=== PATIENT | female | born 1975 | race Caucasian/White ===

== ENCOUNTER 2023-02-18 23:14 | Emergency (ER) | payer OTHER, SELFPAY ==
[2023-02-18 23:21] VITALS: BP 126/87; PULSE 71; RESP 20; TEMP 36.4; O2SAT 100; BMI 22.7
[2023-02-18 23:29] VITALS: PULSE 70; O2SAT 93
[2023-02-18 23:30] VITALS: PULSE 79; O2SAT 95
[2023-02-18 23:45] VITALS: PULSE 68; O2SAT 92
[2023-02-19] VITALS (9 sets, daily range): BP systolic 101–193; BP diastolic 53–94; PULSE 70–86; RESP 18; O2SAT 90–99
--- NOTE | 2023-02-19 00:14 | ED_ITS ---
HPI - Chest Pain General Time Seen by Provider: 00:14 Date Seen: 02/19/23 Chief Complaint: Chest Pain Stated Complaint: chest pain Time Seen by Provider: 02/19/23 00:13 Source: patient, family, RN notes reviewed and old records reviewed Mode of arrival: ambulatory Limitations: no limitations History of Present Illness HPI narrative: 47-year-old female who comes in today with chest pain. About 1 hour prior to coming the emergency department, patient noted substernal and right-sided pressure and ?bubbling accompanying with some belching. No nausea vomiting, no shortness of breath. Pain is worse lying down, better sitting up in does radiate into the jaw. Has not taken anything for this. Denies prior surgeries. Related Data Home Medications Medication Instructions Recorded Confirmed albuterol sulfate 90 mcg/actuation 2 puff inhalation Q6H PRN 10/15/22 02/18/23 aerosol inhaler multivitamin 1 tab PO QAM 10/15/22 02/18/23 Previous Rx's Medication Instructions Recorded sertraline 50 mg tablet 50 mg PO QDAY #90 tabs 10/15/22 Allergies Allergy/AdvReac Type Severity Reaction Status Date / Time No Known Drug Allergies Allergy Verified 10/15/22 09:17 Review of Systems Status of ROS Reports: 10 or more systems reviewed and unremarkable except as noted in History and below [facility] Medical History (Updated 02/19/23 @ 02:13 by Nicolas Bartholomew MD) IUD (intrauterine device) in place ?Z97.5 - Presence of (intrauterine) contraceptive device (ICD-10) History of abnormal cervical Pap smear ?Z87.42 - Personal history of other diseases of the female genital tract (ICD-10) Vasovagal syncope ?R55 - Syncope and collapse (ICD-10) Anxiety ?F41.9 - Anxiety disorder, unspecified (ICD-10) Asthma ?J45.909 - Unspecified asthma, uncomplicated (ICD-10) Surgical History (Updated 10/11/22 @ 13:24 by Kelsey Gonzalez) History of excision of lesion (06/19/17) ?Z98.890 - Other specified postprocedural states (ICD-10) ?Z87.2 - Personal history of diseases of the skin and subcutaneous tissue (ICD-10) [place] teeth extracted ?K08.409 - Partial loss of teeth, unspecified cause, unspecified class (ICD- 10) History of colposcopy (1998) ?Z98.890 - Other specified postprocedural states (ICD-10) History of vaginal delivery Family History (Updated 10/11/22 @ 13:22 by Kelsey Gonzalez) Father Coronary artery disease High blood pressure High cholesterol Alcohol dependence Depression Paternal Grandmother Breast cancer Diabetes Osteoporosis Maternal Grandmother Diabetes Lung cancer, Onset Age: 54 Brother High blood pressure High cholesterol Maternal Grandfather Diabetes Coronary artery disease High blood pressure High cholesterol Mother Vasovagal syncope Hypothyroidism Colon polyps Osteoporosis Paternal Grandfather Coronary artery disease High blood pressure High cholesterol Alcohol dependence Depression Diabetes Aunt Breast cancer Social History Smoking Status: Never smoker Do you use any of these nicotine containing products: None Second hand tobacco smoke exposure: No How often do you have a drink containing alcohol: monthly or less AUDIT-C Alcohol total score: 1 Non-prescribed substance use: denies use Little interest or pleasure in doing things: not at all Feeling down, depressed, or hopeless: not at all Exam Narrative Exam Narrative: General: Well-developed and well-nourished, no acute distress Head: Atraumatic and normocephalic Eyes: Pupils are equal reactive, extraocular motions intact, conjunctiva clear ENT: External nose and ears are normal, posterior pharynx without erythema or exudate Neck: No midline cervical tenderness, full spontaneous range of motion the neck, trachea midline, no adenopathy Heart: Regular rate and rhythm no murmurs or thrills Lungs: Clear to auscultation bilaterally without wheezes or crackles Abdomen: Soft, nontender, nondistended with active bowel sounds Musculoskeletal: No tenderness, deformity, or edema Neurologic: Awake, alert, and oriented x3, no gross focal neurologic deficits, cranial nerves intact as tested Psych: Mood and affect are appropriate Skin: No rashes Const Vital Signs, click to edit/add: Vital Signs - 24 hr 02/18/23 23:21 02/18/23 23:29 02/18/23 23:30 Temperature 97.6 F Pulse Rate 70 79 Pulse Rate [Pulse Oximeter] 71 Respiratory Rate 20 Blood Pressure Blood Pressure [Right Upper Arm] 126/87 Pulse Oximetry 100 93 95 Oxygen Delivery Method Room Air Room Air 02/18/23 23:45 02/19/23 00:00 02/19/23 00:04 Temperature Pulse Rate 68 86 77 Pulse Rate [Pulse Oximeter] Respiratory Rate Blood Pressure 193/94 H Blood Pressure [Right Upper Arm] Pulse Oximetry 92 90 96 Oxygen Delivery Method 02/19/23 00:06 02/19/23 00:15 02/19/23 00:30 Temperature Pulse Rate 78 75 Pulse Rate [Pulse Oximeter] Respiratory Rate Blood Pressure 182/74 H Blood Pressure [Right Upper Arm] Pulse Oximetry 94 94 95 Oxygen Delivery Method 02/19/23 01:53 Temperature Pulse Rate Pulse Rate [Pulse Oximeter] 70 Respiratory Rate 18 Blood Pressure Blood Pressure [Right Upper Arm] 117/71 Pulse Oximetry 99 Oxygen Delivery Method Room Air Course Course Hospital Course: Patient seen and examined, prior records are reviewed. Differential diagnosis includes but not limited to musculoskeletal pain, rib fracture, hemothorax, pneumothorax, pneumonia, pulmonary embolism, acute coronary syndrome, pericarditis, myocarditis, esophagitis, gastroesophageal reflux. Patient presents today with chest pain. Low risk by Wells criteria and PERC negative, no indication for D-dimer or CT PE study. Patient with substernal right-sided chest pain and ?bubbling. ? No focal findings on exam, EKG is reassuring, initial troponin is 0. Additional labs are ordered along with Maalox, Pepcid, and plan for repeat troponin at 1:30 a.m.. Reevaluation(s) Time of Reevaluation #1: 01:16 Reevaluation #1: Labs independently interpreted by me with reassuring CBC, normal basic panel, normal hepatic panel, normal lipase. Chest x-ray independently interpreted by me negative for acute findings. Repeat troponin will be performed and if this is negative patient can be discharged. Time of Reevaluation #2: 02:04 Reevaluation #2: Repeat troponin is negative. Patient recheck, resting comfortably and feels better. Discussed diagnosis and plan, patient is stable for discharge. Vital Signs Vital signs: Initial Vital Signs Temperature 97.6 F 02/18/23 23:21 Temperature Source Temporal Artery Scan 02/18/23 23:21 Pulse Rate 71 02/18/23 23:21 Respiratory Rate 20 02/18/23 23:21 Blood Pressure 126/87 02/18/23 23:21 Blood Pressure Mean 100 02/18/23 23:21 Blood Pressure Position Supine 02/18/23 23:21 Pulse Oximetry 100 02/18/23 23:21 Oxygen Delivery Method Room Air 02/18/23 23:21 Vital Signs Temperature 97.6 F 02/18/23 23:21 Pulse Rate 71 02/18/23 23:21 Respiratory Rate 20 02/18/23 23:21 Blood Pressure 126/87 02/18/23 23:21 Pulse Oximetry 100 02/18/23 23:21 Oxygen Delivery Method Room Air 02/18/23 23:21 Temperature 97.6 F 02/18/23 23:21 Pulse Rate 70 02/19/23 01:53 Respiratory Rate 18 02/19/23 01:53 Blood Pressure 117/71 02/19/23 01:53 Pulse Oximetry 99 02/19/23 01:53 Oxygen Delivery Method Room Air 02/19/23 01:53 MDM - Chest Pain Lab Data Labs: Lab Results 02/19/23 02/19/23 Range/Units 00:00 01:35 WBC 8.93 (4.50-11.00) K/uL RBC 4.30 (4.00-5.20) m/uL Hgb 12.8 (12.0-16.0) gm/dL Hct 38.2 (33.0-51.0) % MCV 89 (80-100) fL MCH 30 (26-34) pg MCHC 34 (32-36) gm/dL RDW Coeff of Marti 13.0 (11.5-15.5) % Plt Count 284 (140-440) K/uL Neut % (Auto) 53.9 (42.0-72.0) % Lymph % (Auto) 36.4 (20-44) % [place] % (Auto) 7.6 (0.0-11.0) % Eos % (Auto) 1.5 (0.0-7.0) % Baso % (Auto) 0.3 (0.0-3.0) % Neut # (Auto) 4.81 (1.7-7.0) K/uL Lymph # (Auto) 3.25 H (0.90-2.90) K/uL [place] # (Auto) 0.70 (0.00-0.90) K/UL Eos # (Auto) 0.13 (0.00-0.50) K/uL Baso # (Auto) 0.03 (0.00-0.30) K/uL Abs Immat Gran (auto) 0.03 (0.00-0.30) K/uL Imm/Tot Granulo (auto) 0.3 % Sodium 137 (135-149) mmol/L Potassium 3.9 (3.6-5.1) mmol/L Chloride 104 (96-114) mmol/L Carbon Dioxide 26 (20-32) mmol/L BUN 12 (5-24) mg/dL Creatinine 0.8 (0.5-1.5) mg/dL Estimated Creat Clear 84.54 Estimated GFR 91 ml/min Glucose 106 (60-115) mg/dL Calcium 9.5 (8.4-10.6) mg/dL Magnesium 2.0 (1.5-2.6) mg/dL Total Bilirubin 0.9 (0.1-1.5) mg/dL Direct Bilirubin 0.1 (0.0-0.5) mg/dL AST 28 (12-35) U/L ALT 21 (4-35) U/L Alkaline Phosphatase 58 (40-150) U/L Total Protein 7.1 (6.0-8.3) g/dL Albumin 4.3 (3.3-5.0) g/dL Lipase 114 (23-300) U/L POC Troponin I 0.00 L 0.00 L (0.01-0.04) ng/ml ECG Data Attestation: I personally reviewed and interpreted this ECG as follows: ECG interpretation date: 02/19/23 ECG interpretation time: 23:21 Prior ECG tracings: not available for review Interpretation: Independently interpreted by me demonstrates sinus rhythm at 75, no acute ST elevations or depressions, normal intervals, normal axis, QTC 433, IL 168. No prior for comparison. Discharge Plan Discharge Clinical Impression: Chest pain, Dyspepsia Patient Disposition: Home, Self-Care Condition: Stable Instructions: GERD (Gastroesophageal Reflux Disease) (DC), Noncardiac Chest Pain (ED) Additional Instructions: [place] diet for 24 hours. Take omeprazole, pantoprazole, or Pepcid daily for 1 week Activity Level: Activity as Tolerated Discharge Diet: Regular Prescriptions: No Action multivitamin Tablet 1 tab PO QAM albuterol sulfate 90 mcg/actuation HFA aerosol inhaler 2 puff inhalation Q6H PRN sertraline 50 mg tablet 50 mg PO QDAY Qty: 90 4RF Follow Up/Referrals: Provider,Not a Local [Referring] - Stand Alone Forms: [facility] Info Instructions
--- NOTE | 2023-02-19 00:24 | CRLHL7_ITS ---
For Patients: As a result of the Century Cures Act, medical imaging exams and procedure reports are released immediately into your electronic medical record. You may view this report before your referring provider. If you have questions, please contact your health care provider. INDICATION: Chest pain. TECHNIQUE: Chest 2 views. COMPARISON: None. FINDINGS: Cardiovascular and mediastinum: Heart size and vasculature are normal in caliber and appearance. Lungs and pleural spaces: Lungs are clear. No sign of infiltrate or mass. No sign of pleural effusion. No pneumothorax. Bones and soft tissues: No significant findings. IMPRESSION: No acute or significant findings. Dictated by Lopez Rowley MD @ 02/19/2023 1:48:59 AM (Electronically Signed)
[2023-02-19] MEDS: 0.9 % SODIUM CHLORIDE 1000 ml 1,000 ML IV (00:35)
[2023-02-19] MEDS: FAMOTIDINE 10 MG/ML inj 20 MG IVP (00:35)
[2023-02-19 00:44] LABS: Basophils Absolute Auto 0.03 K/uL (0.00-0.30); Basophils Percent Auto 0.3 % (0.0-3.0); Eosinophils Absolute Auto 0.13 K/uL (0.00-0.50); Eosinophils Percent Auto 1.5 % (0.0-7.0); Hematocrit 38.2 % (33.0-51.0); Hemoglobin* 12.8 gm/dL (12.0-16.0); Immature Granulocytes Abs Auto 0.03 K/uL (0.00-0.30); Immature Granulocytes Pct Auto 0.3 %; Lymphocytes Absolute Auto 3.25 K/uL (0.90-2.90); Lymphocytes Percent Auto 36.4 % (20-44); Mean Corpuscular HGB Conc 34 gm/dL (32-36); Mean Corpuscular Hemoglobin 30 pg (26-34); Mean Corpuscular Volume 89 fL (80-100); Monocytes Percent Auto 7.6 % (0.0-11.0); Neutrophils Absolute Auto 4.81 K/uL (1.7-7.0); Neutrophils Percent Auto 53.9 % (42.0-72.0); Platelet Count* 284 K/uL (140-440); White Blood Count* 8.93 K/uL (4.50-11.00)
[2023-02-19 00:48] LABS: Slide Review Reflex No
--- NOTE | 2023-02-19 01:07 | ED.NURSE ---
First POC Troponin (results: 0.00) obtained on 02/18/23 at 2335. Unable to change date/time collection in laboratory results.
[2023-02-19 01:10] LABS: Albumin* 4.3 g/dL (3.3-5.0)
[2023-02-19 01:11] LABS: Chloride* 104 mmol/L (96-114); Potassium* 3.9 mmol/L (3.6-5.1); Sodium* 137 mmol/L (135-149)
[2023-02-19 01:13] LABS: Alkaline Phosphatase* 58 U/L (40-150); Aspartate Amino Transferase* 28 U/L (12-35); Bilirubin Direct* 0.1 mg/dL (0.0-0.5); Bilirubin Total* 0.9 mg/dL (0.1-1.5); Blood Urea Nitrogen* 12 mg/dL (5-24); Carbon Dioxide* 26 mmol/L (20-32); Creatinine* 0.8 mg/dL (0.5-1.5); Est. Creatinine Clearance* 84.54; Estimated Glomerular Filt Rate 91 ml/min; Total Protein* 7.1 g/dL (6.0-8.3)
[2023-02-19 01:14] LABS: Alanine Aminotransferase* 21 U/L (4-35); Calcium* 9.5 mg/dL (8.4-10.6); Glucose* 106 mg/dL (60-115); Lipase* 114 U/L (23-300)
== END 2023-02-19 02:25 | disposition home or self-care (01) ==
PROVIDERS: Emergency Provider Family Medicine; PCP Obstetrics & Gynecology
DX: R07.9 Chest pain, unspecified (principal); R10.13 Epigastric pain
CPT/HCPCS: 36415; 71046; 80048; 80076; 83690; 83735; 84484; 85025; 96374; 99284; J7030; S0028

== ENCOUNTER 2024-01-15 08:27 | Outpatient (CLI) | payer OTHER, SELFPAY ==
--- NOTE | 2024-01-15 08:45 | CRLHL7_ITS ---
For Patients: As a result of the Century Cures Act, medical imaging exams and procedure reports are released immediately into your electronic medical record. You may view this report before your referring provider. If you have questions, please contact your health care provider. BILATERAL SCREENING MAMMOGRAM WITH COMPUTER-AIDED DETECTION AND TOMOSYNTHESIS TECHNIQUE: CC and MLO views were obtained. These mammographic images have been obtained using full-field digital technique. These mammographic images were interpreted with the benefit of computer-aided detection. Breast Tomosynthesis was used in this interpretation. COMPARISON FILM: 08/22/21, 03/17/20, 07/29/17. FINDINGS: The breasts are heterogeneously dense, which may obscure small masses. IMPRESSION: There is no radiographic evidence for malignancy. ASSESSMENT: BI-RADS Category 2: Benign RECOMMENDATION: Routine screening mammogram in 1 year. A lay language report of this examination will be provided to the patient. Hector Starr M.D. Diagnostic Radiologist [email or web address] SP/Dictated by: Hector Starr MD @ 01/21/2024 11:12:00 AM (Electronically Signed)
== END 2024-01-15 08:28 | disposition home or self-care (01) ==
LOC: MAMMO 08:28
PROVIDERS: Visit Provider Obstetrics & Gynecology
DX: Z12.31 Encounter for screening mammogram for malignant neoplasm of breast (principal); R92.2 Inconclusive mammogram
CPT/HCPCS: 77063; 77067

== ENCOUNTER 2025-04-06 09:07 | Outpatient (CLI) | payer OTHER, SELFPAY ==
--- NOTE | 2025-04-06 09:15 | CRLHL7_ITS ---
For Patients: As a result of the Century Cures Act, medical imaging exams and procedure reports are released immediately into your electronic medical record. You may view this report before your referring provider. If you have questions, please contact your health care provider. INDICATION: BILATERAL SCREENING MAMMOGRAM, ASYMPTOMATIC 49 Y/O FEMALE COMPARISON: 01/15/2024, 08/22/2021, 03/17/2020 TECHNIQUE: Digital mammogram in CC and MLO projections including computer-aided detection (CAD) and tomosynthesis. BREAST COMPOSITION: The breasts are heterogeneously dense, which may obscure small masses. FINDINGS: No suspicious findings. ASSESSMENT: BI-RADS 2 Benign RECOMMENDATION: Annual screening mammogram. A lay language report of this examination will be provided to the patient. Dictated by: Hector Starr MD @ 04/06/2025 10:03:27 (Electronically Signed)
== END 2025-04-06 09:08 | disposition home or self-care (01) ==
LOC: MAMMO 09:08
PROVIDERS: Visit Provider Obstetrics & Gynecology
DX: Z12.31 Encounter for screening mammogram for malignant neoplasm of breast (principal); R92.333 Mammographic heterogeneous density, bilateral breasts
CPT/HCPCS: 77063; 77067